=== PATIENT | male | born 1995 | race Caucasian/White ===

== ENCOUNTER 2022-07-25 11:06 | Emergency (ER) | payer SELFPAY ==
[2022-07-25] MEDS ORDERED: Ketorolac 30 MG/ML SDV ONE (11:21)
[2022-07-25] MEDS ORDERED: Ketorolac 30 MG/ML SDV IVPUSH ONE (11:22)
[2022-07-25 11:42] LABS: ESTIMATED GFR 84 mL/min (>60)
[2022-07-25] MEDS ORDERED: HYDROmorphone 0.5 MG/0.5 ML Syringe IVPUSH ONE (11:46)
[2022-07-25] MEDS ORDERED: Tamsulosin 0.4 MG Cap.ER PO ONE (12:41)
== END 2022-07-25 15:32 | disposition home or self-care (01) ==
LOC: JP.ED 11:06
DX: N20.1 Calculus of ureter (principal)
CPT/HCPCS: 36415; 74176; 80053; 81001; 85025; 96374; 96375; 99284; A9270; J1170; J1885